=== PATIENT | female | born 1985 | race Caucasian/White ===

== ENCOUNTER 2022-11-13 19:58 | Outpatient (REF) | payer OTHER, SELFPAY ==
[2022-11-20 10:10] LABS: Age Gdln ACOG Testing Note (.); HPV Aptima Negative (Negative); IGP, Aptima HPV, rfx 16/18,45 Note (.)
== END 2022-11-13 19:59 | disposition home or self-care (01) ==
LOC: LAB 19:58
PROVIDERS: Visit Provider Obstetrics & Gynecology
DX: Z01.419 Encounter for gynecological examination (general) (routine) without abnormal findings (principal)
CPT/HCPCS: 87624; G0145

== ENCOUNTER 2022-12-04 14:06 | Outpatient (OUT) | payer OTHER, SELFPAY ==
--- NOTE | 2022-12-04 14:38 | ECG_ITS ---
[facility] Test Date: 2022-12-04 Pat Name: JULIO CALIX Department: Room: - Gender: Female [employer]: : 1985 Requested By: CALIXTO CARLOS Order Number: [id number] Reading MD: LEYDI HEATON Measurements Intervals [place] Rate: 83 P: 39 MT: 140 QRS: 32 QRSD: 87 T: 22 QT: 363 QTc: 428 Interpretive Statements SINUS RHYTHM No previous ECG available for comparison Electronically Signed On 12-05-2022 7:33:59 EDT by LEYDI HEATON
== END 2022-12-04 14:07 | disposition home or self-care (01) ==
LOC: PST 14:08
PROVIDERS: PCP Family Medicine; Visit Provider Obstetrics & Gynecology
DX: Z01.810 Encounter for preprocedural cardiovascular examination (principal); N92.1 Excessive and frequent menstruation with irregular cycle; R10.2 Pelvic and perineal pain
CPT/HCPCS: 93005

== ENCOUNTER 2022-12-12 07:58 | Day surgery (SDC) | payer OTHER, SELFPAY ==
[2022-12-04 14:32] VITALS: BP 115/70; PULSE 93; RESP 14; TEMP 36.4; O2SAT 98; BMI 37.6
[2022-12-12] VITALS (12 sets, daily range): BP systolic 121–135; BP diastolic 69–96; PULSE 64–91; RESP 10–19; TEMP 36.1–36.4; O2SAT 95–100; BMI 37.7
[2022-12-12 08:07] LABS: Basophils Percent Auto 0.4 % (0.2-2.0); Eosinophils Absolute Auto 0.1 10^3/uL (0.0-0.7); Eosinophils Percent Auto 1.3 % (0.9-7.0); Hematocrit 40.6 % (36.0-48.0); Hemoglobin 12.8 g/dL (12.0-16.0); Immature Granulocytes Abs Auto 0.01 10^3/uL (0.00-0.03); Immature Granulocytes Pct Auto 0.2 % (0.0-0.5); Lymphocytes Absolute Auto 1.7 10^3/uL (1.2-3.8); Lymphocytes Percent Auto 30.3 % (20.5-60.0); Mean Corpuscular HGB Conc 31.5 g/dL (29.9-35.2); Mean Corpuscular Hemoglobin 26.3 pg (26.7-34.0); Mean Corpuscular Volume 83.4 fL (81.0-99.0); Mean Platelet Volume 7.9 fL (9.5-13.5); Monocytes Absolute Auto 0.6 10^3/uL (0.3-0.8); Monocytes Percent Auto 10.8 % (1.7-12.0); Neutrophils Absolute Auto 3.2 10^3/uL (1.4-6.5); Platelet Count 322 10^3/uL (150-450); Red Blood Count 4.87 10^6/uL (4.20-5.40); Red Cell Distribution Width 14.1 % (11.0-15.0); White Blood Count 5.6 10^3/uL (4.0-11.0)
[2022-12-12 08:43] LABS: HCG Quantitative <1 mIU/mL
[2022-12-12] MEDS: LACTATED RINGER'S SOLUTION 1,000 ML 50 ML IV (09:08)
--- NOTE | 2022-12-12 10:12 | PM.ONB ---
Brief Operative Note Date of procedure: 12/12/22 Pre-op diagnosis: menorrhagia, dysmenorrhea Post-op diagnosis: same Procedure: NAME OF PROCEDURE: [ D&c hysteroscopy] PROCEDURE: The patient was taken back to the Operating Room where she was prepped and draped in normal sterile fashion after being placed under general anesthesia without difficulty. She was also placed in the dorsal lithotomy position. A weighted speculum was placed in the patient?s vagina. The anterior lip of the cervix was identified and grasped with a single tooth tenaculum. The patient?s uterus was then sounded roughly to [9? ] cm. The patient was then gently dilated using Hegar dilators. The hysteroscope was passed through the patient?s cervix into the uterus. Both ostia were identified. Normal appearing endometrium. No gross evidence of malignancy. The MyoSure was then removed from the scope.? Survey of the patient's uterine cavity demonstrated removal of polyps. The hysteroscope was then removed from the patient's uterus. At that point, gentle curettage was performed until a gritty texture was noted. The endometrial curettings were sent out to pathology. The single tooth tenaculum was then removed from the patient's anterior lip of the cervix where excellent hemostasis was noted. All instruments were removed from the patient?s vagina. The patient tolerated the procedure well. Sponge, lap and needle counts were correct times two. The patient was taken to the Recovery Room in stable condition. was placed in the patient's vagina. The anterior lip of the cervix was identified and grasped with a single tooth tenaculum. pap test was performed, bimanual exam with no abnormal finding. The single tooth tenaculum was then removed from the patient's anterior lip of the cervix where excellent hemostasis was noted. All instruments were removed from the patient's vagina. Anesthesia: GETA Surgeon: Isaac Kerr Estimated blood loss (mL): 5 Pathology: other (endometrial currettings) Condition: stable Disposition: PACU
== END 2022-12-12 11:00 | disposition home or self-care (01) ==
PROVIDERS: PCP Family Medicine; Visit Provider Obstetrics & Gynecology
PROC: (CPT 58558; principal; 2022-12-12 09:20)
DX: N92.1 Excessive and frequent menstruation with irregular cycle (principal); N94.6 Dysmenorrhea, unspecified; R10.2 Pelvic and perineal pain; I34.1 Nonrheumatic mitral (valve) prolapse
CPT/HCPCS: 58558; 36415; 84702; 85025; 88305; J2704